=== PATIENT | male | born 1975 | race Hispanic/Latino ===

== ENCOUNTER 2023-01-05 10:27 | Emergency (ER) | payer OTHER, SELFPAY ==
[2023-01-05 10:29] VITALS: BP 117/90; PULSE 122; RESP 24; TEMP 34.7; O2SAT 97; BMI 29.4
--- NOTE | 2023-01-05 10:41 | EDS_ITS ---
HPI History of Present Illness Chief Complaint: Upper Extremity Injury Informant: patient Narrative Narrative: [id number] male here work related injury shortly prior to arrival. Crush injury left index finger between a steel wire and still being. States numbness to his left index with pain with movement. Tetanus unknown. History of alcoholic cirrhosis states decreased on his alcohol history. Denies any allergies. No other injuries. No history of similar. Tetanus Immunization: Unknown Prior similar symptoms: No PFSH PFSH Medical History no medical history Home Medications cephalexin 500 mg capsule 500 mg PO Q6 #40 CAPSULES 01/05/23 [Rx Last Taken Unknown] oxycodone 5 mg tablet 5 mg PO Q6H PRN pain 3 days #12 tabs 01/05/23 [Rx Last Taken Unknown] Allergy/AdvReac Type Severity Reaction Status Date / Time No Known Allergies Allergy Verified 01/05/23 10:28 Surgical History no surgical history Social History Smoking Status: Current every day smoker tobacco type: cigarettes ROS ROS ED Constitutional Constitutional ED: Denies chills, fever(s) or sweats Eyes Eyes: Denies change in vision ENT ENT ED: Denies dysphagia or sore throat Cardiovascular Cardiovascular: Denies chest pain, leg edema, palpitations or racing heartbeat Respiratory/Chest Respiratory/Chest: Denies cough, dyspnea or dyspnea on exertion Gastrointestinal Gastrointestinal: Denies abdominal pain, diarrhea, nausea or vomiting Genitourinary Genitourinary ED: Denies dysuria, hematuria or urinary frequency Musculoskeletal Musculoskeletal: Reports extremity pain; Denies back pain or neck pain Integumentary Reports wounds; Denies rash Neurologic Neurologic: Denies headache(s), paresthesias or weakness EXAM Physical Exam Const Vital Signs: 01/05/23 10:29 Temperature 94.5 F L Temperature Source Temporal Pulse Rate 122 H Respiratory Rate 24 H Blood Pressure 117/90 H Blood Pressure Mean 99 Pulse Ox 97 Oxygen Delivery Method Room Air Positive well nourished and well developed Constitutional Narrative: Uncomfortable nontoxic General Appearance ED: well developed HEENT Reports moist mucous membranes normocephalic and atraumatic Eyes PERRL, EOMs intact bilaterally and conjunctivae normal General Eye ED: Yes normal appearance of both eyes Neck no lymphadenopathy and supple General: Negative for tenderness Chest Wall Chest: Negative for tenderness Resp normal respiratory effort and normal air movement Effort and Inspection: symmetric chest movement; Negative for respiratory distress Cardio regular rhythm and no murmurs Rate: tachycardic Peripheral Pulses: pulses 2+ throughout GI normal to inspection, nondistended, normoactive bowel sounds and non-tender Palpation: Negative for guarding or rebound tenderness present Back/Spine no CVA tenderness and no thoracic nor lumbar tenderness Extremity Extremity Narrative: Left upper extremity: No elbow or wrist tenderness. Hand examination index finger there is laceration across the radial aspect base of the phalanx approximate 3 cm, small 1 cm laceration dorsal aspect on the ulnar aspect of the middle phalanx. Patient would not actively flex the finger due to pain at this time. There is no clear deformities. Bleeding controlled with pressure. General Extremety ED: Negative for edema or tenderness General Extremity: Negative for edema Neuro oriented x3 Sensorium / Orientation: awake and alert Skin Skin Narrative: See above MDM MDM MDM Narrative Medical decision making narrative: Interventions / MDM: Differential diagnosis: Open finger fracture, skin laceration, crush injury Diagnosis considered but do not suspect: N/A My EKG interpretation: N/A Imaging independently reviewed and interpreted by myself: Left hand x-ray 3 views: No fracture noted soft tissue swelling also read by radiology. External documents reviewed: N/A Test considered but not ordered:N/A ED course: Patient with crush injury with lacerations with pain. Suspect open fracture due to mechanism. IV established. Labs will be sent. Tetanus updated. Morphine and Zofran with fluids started. We will start Ancef. X-ray left hand ordered. X-ray negative for fracture. Patient finger was anesthetized explored with a turnicot no clear visualization of any tendons however he had improve flexion of the DIP and PIP however slightly weak and in his dominant hand. Possible partial flexor tendon injury. I did speak with Dr. Cutler on-call and sent images through the back line, he agrees and can follow-up with him closely in the office. Recommend closure with splinting in a flexion position of his digits this was performed with no complications. He will continue antibiotics pain medicines sent to his pharmacy we will avoid Tylenol due to his cirrhosis history. Work restrictions given with follow-up with orthopedics. Procedure note: Normal sterile conditions. Total of 5 cc 1% lidocaine used for a metacarpal block of the finger. Good analgesia was performed. Wound was cleansed with total 1 L of fluid, turnicot with no clear visualization of any te ndon injury however there was weakness, area was kept open until I spoke with orthopedics. Turnicot was removed. Discussion continue flushing normal saline, initial closure of the dorsal PIP joint 2 cm laceration with two 4-0 nylon simple interrupted sutures. The volar proximal wound was closed using a total of 5, 4-0 nylon simple interrupted sutures with good approximation. There was tissue debridement of excess flap tissue. Xeroform dressing placed around the wound, dry gauze dressing Curlex. Padding was placed along the distal forearm and digits 2 and 3. A 2 inch plaster splint was made on the volar aspect extending to the distal second third digits placed in a flexed position. This was secured with an Jimmie wrap. Neurovascular intact post splinting. Patient Toller procedure well. Re-evaluation: stable Disposition discussed with patient/family/significant other: Patient Case discussed with consulting clinician: Orthopedist Dr. Cutler This note was generated with [employer] dictation software. It may contain incorrect words, spelling, and punctuation that were not noted in checking the note before signing. Discharge Plan Triage Chief Complaint: Upper Extremity Injury ED Provider: mAador Baird Dx/Rx/DC Orders Clinical Impression: Tetanus toxoid vaccination administered at current visit, Alcoholic cirrhosis of liver, Crushing injury of left index finger, initial encounter, Finger laceration with complication Instructions: ED Crush Injury, Hand, ED Laceration: All Closures Prescriptions: New oxycodone 5 mg tablet 5 mg PO Q6H PRN (Reason: pain) 3 Days Qty: 12 0RF cephalexin [cephalexin] 500 mg capsule 500 mg PO Q6 Qty: 40 0RF Primary Care Provider: Care Physician,No Primary Referrals: James Cutler DO [Med Staff - Active Staff] - 2 Days Care Physician,No Primary [Primary Care Provider] - Activity Restrictions/Additional Instructions: Complex laceration of your left index finger. No fracture on x-ray. Possible tendon injury flexor. Total of 7 sutures to the finger, maintain the splint. Follow-up with Dr. Cutler in the next 2 to 3 days for outpatient evaluation. Work restrictions as given. Take antibiotic and pain medication as per scribe. Disposition Disposition: Home, Self Care Discharge Date/Time: 01/05/23 14:20
[2023-01-05] MEDS: 0.9% Normal Saline 1,000 ML 150 ML IV (10:50)
[2023-01-05] MEDS: Lidocaine 1% (20 ml mdv) 20 ML Vial INFILT (10:51)
[2023-01-05] MEDS: Morphine 4 MG/ML Syringe IV (10:51)
[2023-01-05] MEDS: Ondansetron 4 MG/2 ML Vial IV (10:51)
[2023-01-05] MEDS: Diphth,Pertuss(Acell),Tet Vac 0.5 ML Vial IM (10:52)
[2023-01-05] MEDS: Cefazolin 2 GM in 0.9% Normal Saline 100 ML IV (10:54)
[2023-01-05 11:04] LABS: Absolute Neutrophil Count 3.2 X10^3/uL (2.0-7.7); Basophil# 0.04 X10^3/uL; Basophil% 0.6 % (0-1); Eosinophil# 0.12 X10^3/uL; Eosinophils% 1.7 % (0-5); Hematocrit 47.6 % (40-54); Hemoglobin 16.6 g/dL (13.0-16.5); Lymphocyte % 42.2 % (19-41); Mean Corp Hgb Conc 34.9 g/dL (32-36); Mean Corpuscular Hgb 32.4 pg (27.0-32.0); Mean Corpuscular Volume 92.8 fL (80-94); Mean Platelet Vol. 11.2 fl (6.2-12.0); Monocyte# 0.62 X10^3/uL; NRBC Flagged by Analyzer 0 % (0-5); Neutrophil # 3.18 X10^3/uL (2.7-7.7); Neutrophil % 46.2 % (47-70); Platelet Count 106 K/mm3 (150-450); RBC Distribution Width CV 12.5 % (11.6-14.6); RBC Distribution Width SD 42.9 fl (35.1-43.9); Red Blood Count 5.13 M/mm3 (4.6-6.2); White Blood Count 6.9 K/mm3 (4.4-11.0)
[2023-01-05 11:13] LABS: International Normalized Ratio 1.1; Prothrombin Time (Protime)PT. 14.5 SECONDS (11.7-14.9)
[2023-01-05 11:14] LABS: Partial Thromboplast Time 30.9 Seconds (24.1-36.2)
--- NOTE | 2023-01-05 11:30 | RAD_ITS ---
STUDY: X-RAY - LEFT HAND REASON FOR EXAM: Male, 47 years old. Injury to the index finger. TECHNIQUE: 3 view(s) of the hand. COMPARISON: None. FINDINGS: Normal radiocarpal articulation. Normal distal radioulnar joint. Normal visualized carpal bones. Normal carpal articulations Normal carpometacarpal articulation of the thumb. Normal second through fifth carpometacarpal joints. Normal metacarpi. Normal metacarpophalangeal joint of the thumb. Normal interphalangeal joint of the thumb. Normal proximal and distal phalanges of the thumb. Normal metacarpophalangeal joints of the second through fifth fingers. Normal proximal and distal interphalangeal joints of the second through fifth fingers. Normal phalanges of the second through fifth fingers. Diffuse soft tissue swelling overlying the index finger. Laceration overlying the proximal phalanx of the index finger. RAD/Hand Min 3 Views IMPRESSION: Soft tissue swelling in the laceration overlying the index finger. Electronically Signed: Nigel Vazquez MD at 12:14 EDT ,
[2023-01-05 11:38] LABS: Anion Gap 4 (5-15); BUN 15 mg/dL (7-18); BUN/Creat Ratio 13.6 RATIO (10-20); Calcium,Total 9.2 mg/dL (8.5-10.1); Chloride 105 mmol/L (98-107); EST Glomerular Filtration Rate 77 mL/min (>60); Est Glom Filt Rate - Afr Amer 93 mL/min (>60); Estimated Creatinine Clearance 79.29 ml/min; Glucose 94 mg/dL (74-106); Potassium 3.5 mmol/L (3.5-5.1); Sodium Level 137 mmol/L (136-145)
[2023-01-05 12:49] VITALS: RESP 17
[2023-01-05 14:19] VITALS: BP 121/81; RESP 17
== END 2023-01-05 14:20 | disposition home or self-care (01) ==
PROVIDERS: Emergency Provider Emergency Medicine; Visit Provider Emergency Medicine
DX: S67.191A Crushing injury of left index finger, initial encounter (principal); K70.30 Alcoholic cirrhosis of liver without ascites; W23.0XXA Caught, crushed, jammed, or pinched between moving objects, initial encounter; F17.210 Nicotine dependence, cigarettes, uncomplicated; Y99.0 Civilian activity done for income or pay; Z23 Encounter for immunization
CPT/HCPCS: 12002; 29130; 73130; 80048; 85025; 85610; 85730; 90471; 90715; 96361; 96365; 96366; 96375; 99284; J7030; J7050; A4216; J2405

== ENCOUNTER 2023-02-22 14:55 | Outpatient (RCR) | payer OTHER, BC, SELFPAY ==
--- NOTE | 2023-02-22 18:15 | HP.OTEVAL_ITS ---
Patient's Visit Information Visit Information Visit Information: JUDY NIELSON is a 47 year old M, referred to Occupational Therapy by Dr. James Cutler DO, with a diagnosis of lac L IF with no nail damage, crushing injury. Date of Evaluation: 02/22/23 Occupational Therapist: Noelle Lezama, HUAN/Lyssa, CHT Subjective Subjective: Pt was unloading the truck and too much weight on one side and it turned and crushed and cut finger on January 05. Pt had cast and 7 stitches and took stitches about ~2 weeks after the accident ~ Feb 21. Pt reports L index numbness from PIP and above. Pt reports utilizing MF versus IF for functional tasks due to decreased sensation in fingers. Pt reports utilizing compensatory strategies to perform tasks and c/o left shoulder and elbow soreness due to these techniques. Pt reports he was taken off of light duty Feb 18. 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 ADLs Fasteners: Buttons and Zippers Pain R IF PIP: Current Pain Intensity: 4 Objective Objective/Observation: Pt left IF PIP large compared to right, when palpated scar thick with some mobilization it softness ROM MP: Right IF +5/95 Left +5/90 PIP: Right IF +9/96 Left -18/ DIP: Right IF +5/58 Left -3/ ROM Comments: pt demo with a decrease in left IF ROM Strength Glass Cutter Hand: Right 67# Left 26# Lateral Pinch: Right 20# Left 13# Tripod Pinch: Right 13# Left 5# Strength Comments: pt demo with weak left online user experience strategist and pinch strength Edema PIP: Right IF 7cm Left IF 8.4cm Sensation Sensation Comments: Both hands including L index finger 2.83 (normal sensation) Nine Hole Peg Right: 20.20 secs Left: 34.81 secs Comments: Pt utilizes compensatory strategy with L MF and whole LUE for task Quick DASH-Disab of Arm,Shoulder& Hand Quick DASH Score: 38.3325 Goals Goal:: Pt will demonstrate a left hand online user experience strategist strength of 65# by discharge Pt will demonstrate a left hand lateral online user experience strategist strength of 20# by discharge Pt will demonstrate a left hand tripod online user experience strategist strength of 13# by discharge Goal:: Pt will demonstrate improved PIP extension/flexion to 0*/90* respectively by discharge Pt will demonstrate improved DIP extension/flexion to 0*/55* respectively by discharge Goal:: Pt will report pain no greater than 1/10 with use of affected hand with ADLs and IADLs by d/c. Goal:: Pt to demo improved FMC by performing the 9HPT time by >21 seconds in order to improve manipulation of small objects to perform ADL and work tasks. Goal:: Pt will demonstrate knowledge of scar management to improve healing by week 2 . Goal:: Pt will report ability to perform work tasks with usual tasks such as bolting and welding with demonstration of good body mechanics by discharge. Rehabilitation General Assessment: Pt seen for OT eval with a L IF PIP crushing injury and laceration now s/p 6 weeks and 6 days injury. Pt demonstrates decreased L IF ROM, strength, and pain limiting pt's ability to perform during ADL/IADL tasks. Pt demonstrates decreased coordination and dexterity with left hand, which is his dominant hand. Pt will benefit from skilled OT 2-3x a week for 4-6 weeks for increased L IF ROM and strengthening to improve ability to incorporate finger within ADL/IADL tasks. Today Therapist ed pt in ROM, scar management, and OT POC to increase ROM. Pt agrees and verbalizes understanding of OT POC. Therapy session was directly supervised and doc. approved by Noelle PRESSLEY/Lyssa,CHT. Rehabilitation Potential: Good Anticipated Interventions Anticipated Interventions: A/AAROM/PROM, Strengthening, Scar Care, Modalities, Joint Protection/Energy Conservation, Fine Motor Coord/Jose, ADL Training, Education re assistive Equipment, Education re Diagnosis, Education re Skin Care and Precautions and Home Program Visit Plan Frequency: 2-3x /Week Duration: 4-6 Weeks General Plan: Therapist will work on ROM and scar management to increase ability to perform ADL tasks, then on dexterity and strengthening as pt progresses throughout sessions TEXT: Thank you for the opportunity to evaluate your patient. For Medicare and Medicare HMO plans, please review the plan of care and approve it. It will need to be FAXED BACK to us at [phone] for Medicare purposes. Please let me know if there are questions or concerns regarding this plan of care. Physician Signature: Date:
--- NOTE | 2023-05-31 09:46 | HP.OT.NRP ---
Patient Information Patient Information: JUDY NIELSON was seen in my office for initial evaluation on 02/22/23. The following Plan of Care was established for this patient: POC Established Initial Frequency: 2-3x /Week Initial Duration: 4-6 Weeks Anticipated Interventions Anticipated Interventions: A/AAROM/PROM, Strengthening, Scar Care, Modalities, Joint Protection/Energy Conservation, Fine Motor Coord/Jose, ADL Training, Education re assistive Equipment, Education re Diagnosis, Education re Skin Care and Precautions and Home Program Last Seen Last Seen: This patient was last seen in our office 02/22/23. Pertinent comments regarding their Occupational therapy will appear below: pt was seen for OT eval only- no showed the scheduled apts. pt d/c due to time lapse in service. At this point I will be discontinuing this patient from occupational therapy. I would be happy to see this patient again in the future if found appropriate by the physician. Thank you! Noelle Lezama, OTR/L, CHT
== END 2023-02-22 19:00 | disposition home or self-care (01) ==
LOC: OT 14:55
PROVIDERS: Referring Provider Student in an Organized Health Care Education/Training Program; Visit Provider Student in an Organized Health Care Education/Training Program
DX: S61.211D Laceration without foreign body of left index finger without damage to nail, subsequent encounter (principal)
CPT/HCPCS: 97110; 97166